=== PATIENT | female | born 1950 | race Caucasian/White ===

== ENCOUNTER 2021-09-07 15:09 | Outpatient (CLI) | payer MEDICARE ==
[2021-09-07 21:12] LABS: THYROID STIMULATING HORMONE 9.3 uIU/mL (0.34-5.60)
[2021-09-07 21:14] LABS: FREE T3 3.06 pg/mL (2.5-3.9); FREE T4 (FREE THYROXINE) 0.84 ng/dL (0.58-1.64)
== END 2021-09-07 15:10 | disposition home or self-care (01) ==
LOC: LAB.S 15:09
PROVIDERS: ATTEND Internal Medicine Endocrinology, Diabetes & Metabolism
DX: E03.9 Hypothyroidism, unspecified (principal)
CPT/HCPCS: 36415; 84439; 84443; 84481

== ENCOUNTER 2023-08-28 08:42 | Outpatient (CLI) | payer MEDICARE ==
[2023-08-28 14:39] LABS: BASOPHILS # (AUTO) 0.1 10^3/uL (0.0-0.1); BASOPHILS % (AUTO) 0.6 %; EOSINOPHILS # (AUTO) 0.1 10^3/uL (0.0-0.7); EOSINOPHILS % (AUTO) 1.4 %; HCT - HEMATOCRIT 32.8 % (37.0-47.0); HGB - HEMOGLOBIN 9.7 g/dL (12.0-16.0); LYMPHOCYTES % (AUTO) 35.3 %; MEAN CORPUSCULAR HEMOGLOBIN 23.6 pg (27.0-31.0); MEAN CORPUSCULAR HGB CONC 29.6 g/dL (32.0-36.0); MEAN CORPUSCULAR VOLUME 79.8 fL (81.0-99.0); MONOCYTES # (AUTO) 1.2 10^3/uL (0.0-1.0); MONOCYTES % (AUTO) 14.4 %; NEUTROPHILS % (AUTO) 48.1 %; PLT - PLATELET COUNT 371 10^3/uL (130-450); RED BLOOD COUNT 4.11 10^6/uL (4.20-5.40); RED CELL DISTRIBUTION WIDTH 18.1 % (12.0-15.0); WHITE BLOOD COUNT 8.4 x10^3/uL (4.8-10.8)
[2023-08-28 15:20] LABS: FERRITIN 7.5 ng/mL (11.0-306.8)
== END 2023-08-28 08:43 | disposition home or self-care (01) ==
LOC: LAB.S 08:42
PROVIDERS: ATTEND Family Medicine
DX: D64.9 Anemia, unspecified (principal)
CPT/HCPCS: 36415; 82728; 83540; 84466; 85025

== ENCOUNTER 2023-11-19 08:00 | Outpatient (CLI) | payer MEDICARE ==
[2023-11-19 20:10] LABS: FECAL OCCULT BLOOD (FIT) POSITIVE (NEGATIVE)
== END 2023-11-19 23:59 | disposition home or self-care (01) ==
LOC: LAB.S 08:00
PROVIDERS: ATTEND Family Medicine
DX: D64.9 Anemia, unspecified (principal); Z12.11 Encounter for screening for malignant neoplasm of colon
CPT/HCPCS: 82274

== ENCOUNTER 2023-12-03 11:51 | Outpatient (CLI) | payer MEDICARE ==
[2023-12-03 15:37] LABS: THYROID STIMULATING HORMONE 0.29 uIU/mL (0.34-5.60)
== END 2023-12-03 11:52 | disposition home or self-care (01) ==
LOC: LAB.S 11:51
PROVIDERS: ATTEND Family Medicine
DX: E03.9 Hypothyroidism, unspecified (principal); D64.9 Anemia, unspecified
CPT/HCPCS: 36415; 82728; 83540; 84439; 84443; 84466; 85025

== ENCOUNTER 2023-12-11 11:08 | Emergency (ER) | payer MEDICARE ==
[2023-12-11 11:29] VITALS: O2SAT 100
--- NOTE | 2023-12-11 12:07 | ED Physician Documentation ---
History of Present Illness - Stated complaint Stated Complaint: LT LEG PX, LOWER BACK PX - Chief complaint Chief Complaint: Ext Problem - Additonal information Additional information: 73-year-old female presents emergency department for lower back pain. She has recently been diagnosed with lung cancer. She says on Friday she overexerted herself was lifting to any weights and heavy boxes and started to experience some pain on Friday with worsening pain radiating down to her left leg on Friday. She says that she does have a history of sciatica. She says that she has had multiple CT scans for her lung cancer and says that she has not been told of any metastases to her spine, these images were completed about 2 to 3 weeks ago. She has had no incontinence of bowel or bladder no recent falls or trauma to the back. 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 HEENT: Detached retina repair - Present Medications Home Medications: Ambulatory Orders Medication Instructions Recorded Confirmed Cyclobenzaprine [Flexeril] 10 mg PO TID PRN 6 Days #20 tablet 12/11/23 Levothyroxine [Synthroid] 137 mcg PO QDAC 12/11/23 12/11/23 lamoTRIgine [Lamictal Xr] 200 mg PO DAILY PM 12/11/23 12/11/23 traMADol [Ultram] 50 mg PO BID 12/11/23 12/11/23 - Allergies Allergies/Adverse Reactions: Allergies Allergy/AdvReac Type Severity Reaction Status Date / Time No Known Drug Allergies Allergy Verified 12/11/23 11:18 - Social History Does the pt smoke?: No Smoking Status: Never smoker Does the pt drink ETOH?: No Does the pt have substance abuse?: No - Immunizations Immunizations are current?: Yes PD ED PE NORMAL - Vitals Vital signs reviewed: Yes - General General: Alert and oriented X 3, No acute distress, Well developed/nourished - HEENT HEENT: Atraumatic, PERRL - Abdomen Abdomen: Normal bowel sounds, Soft, Non tender, Non distended, No organomegaly - Derm Derm: Normal color, Warm and dry, No rash - Neuro Neuro: Alert and oriented X 3, 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 Curvature of the cervical, thoracic, and lumbar spine are within normal limits. Bony features of the shoulders and hips are of equal height bilaterally. Posture is upright, gait is smooth athough slow and patient is using a cane, steady, and within normal limits. No tenderness noted on palpation of the spinous processes. Spinous processes are midline. Cervical, thoracic, and lumbar paraspinal muscles are not tender and are without spasm. No discomfort is noted with flexion, extension, and [id number] rotation of the cervical spine, full range of motion is noted. Full range of motion including flexion, extension, and gqjx-[id number] rotation of the thoracic and lumbar spine are noted and without discomfort. Straight leg raise test is positive on the left side and negative on the right. Sensation to the upper and lower extremities is normal bilaterally. No clonus is noted. Shader And Toner strength is normal bilaterally. Dorsi/plantar flexion is normal bilaterally. Results - Vitals Vitals: Vital Signs - 24 hr 12/11/23 11:18 Temperature 36.5 C Heart Rate 101 H Respiratory 16 Rate Blood Pressure 133/96 H O2 Saturation 100 Oxygen O2 Source Room air PD Medical Decision Making - ED course ED course: This patient presents with back pain most consistent with lumbago w/L sided sciatica. Differential diagnoses includes lumbago versus musculoskeletal spasm / strain versus sciatica. Positive left leg raise for sciatica. No back pain red flags on history or physical. Presentation not consistent with malignancy (lack of history of malignancy, lack of B symptoms), fracture (no trauma, no bony tenderness to palpation), cauda equina (no bowel or urinary incontinence/retention, no saddle anesthesia, no distal weakness), AAA, viscus perforation, osteomyelitis or epidural abscess (no IVDU, vertebral tenderness), renal colic, pyelonephritis (afebrile, no CVAT, no urinary symptoms). Given the clinical picture, no indication for imaging at this time. Pain was significantly improved with Tylenol, Toradol, cyclobenzaprine I witnessed the patient ambulate myself and she ambulated without any difficulty was also able to get herself in and out of bed without difficulty. 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 Departure - Departure Disposition: 01 Home, Self Care Clinical Impression: Left sided sciatica, Lumbago Instructions: ED Back Care Tips, ED Spasm Back No Trauma, ED Sprain Strain Lumbar Prescriptions: Cyclobenzaprine [Flexeril] 10 mg PO TID PRN 6 Days #20 tablet PRN Reason: Spasms Comments: As we discussed it is very important that you continue to move going home and find ways to stay ambulatory to help you recover from your lower back pain laying around is going to make this back pain worse. I would follow-up with your primary care provider to see if you can get in with physical therapy to help with your recovery of sciatica. It is very important that you stay on top of pain medications [id number] with you feel if they are working or not to help with improvement of your pain. You can take 1000 mg of Tylenol every 8 hours and 500 mg of Aleve every 12 hours do not take Aleve or any other NSAID for longer than 2 weeks at a time and make sure that you eat before you take Aleve. I have also sent a prescription of cyclobenzaprine a muscle relaxer different than the one that you have at home you should take this every 8 hours, 3 times a day and stay on top of this to help with your lower back pain. You can alternate between 20 minutes of heat and 20 minutes of ice with some gentle range of motion stretching exercises to help expedite recovery. Could also consider adding on a lidocaine patch to lower back and can buy this [id number] at any pharmacy. Please come back to the emergency department if you are starting to notice any w orsening symptoms, urinary or bowel incontinence, fevers or chills or any other concerning emergent symptoms. Forms: PCP List
[2023-12-11] MEDS: CYCLOBENZAPRINE 10 MG TABLET PO STA (12:28)
[2023-12-11] MEDS: ACETAMINOPHEN 325 MG TABLET PO STA (12:28)
[2023-12-11] MEDS: KETOROLAC 30 MG/ML VIAL IM STA (12:29)
[2023-12-11] MEDS: DROPERIDOL 5 MG/2 ML VIAL IM STA (14:11)
[2023-12-11 14:29] VITALS: BP 128/85
== END 2023-12-11 14:26 | disposition home or self-care (01) ==
LOC: ED 11:08
DX: M54.42 Lumbago with sciatica, left side (principal); C34.90 Malignant neoplasm of unspecified part of unspecified bronchus or lung
CPT/HCPCS: 96372; 99283; A9270

== ENCOUNTER 2023-12-14 13:23 | Emergency (ER) | payer MEDICARE ==
[2023-12-14] MEDS: DEXAMETHASONE 10 MG/ML VIAL IM STA (15:59)
[2023-12-14] MEDS: HYDROmorphone 2 MG/ML VIAL IM STA (16:02)
[2023-12-14] MEDS: KETOROLAC 60 MG/2 ML VIAL IM STA (16:04)
--- NOTE | 2023-12-14 16:10 | ED Physician Documentation ---
History of Present Illness - Stated complaint Stated Complaint: LT LEG PX,NUMB TOES - Chief complaint Chief Complaint: Ext Problem - History obtained from History obtained from: Patient - Additonal information Additional information: The patient comes to the emergency department chief complaint of left buttock pain radiating down to her left lower leg. She states that she has a history of this but it seems to flared up worse recently. She was seen in the emergency department yesterday and given Flexeril and she also has Ultram at home, but neither of these are working. She is supposed to go down to [place] tomorrow for a lung biopsy and some other medical care for a new diagnosis of lung cancer, and she is afraid that it will be too uncomfortable for her to be able to get through the day with this sciatica going on. She states that she her outer 2 toes are numb as well. Patient denies any difficulty controlling bowels or bladder. She denies any fevers or chills. No acute injury. She states it hurts to sit. 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 HEENT: Detached retina repair - Present Medications Home Medications: Ambulatory Orders Medication Instructions Recorded Confirmed Cyclobenzaprine [Flexeril] 10 mg PO TID PRN 6 Days #20 tablet 12/11/23 Levothyroxine [Synthroid] 137 mcg PO QDAC 12/11/23 12/11/23 lamoTRIgine [Lamictal Xr] 200 mg PO DAILY PM 12/11/23 12/11/23 traMADol [Ultram] 50 mg PO BID 12/11/23 12/11/23 Alprazolam [Xanax] 0.25 mg PO Q6H PRN #12 tablet 12/14/23 HYDROcod/ACETAM 5/325 [[place] 5/325] 1 - 2 tablet PO Q4HR PRN #14 tablet 12/14/23 predniSONE [Deltasone] 10 mg PO [id number] #42 tab 12/14/23 - Allergies Allergies/Adverse Reactions: Allergies Allergy/AdvReac Type Severity Reaction Status Date / Time No Known Drug Allergies Allergy Verified 12/14/23 13:31 - Social History Does the pt smoke?: No Smoking Status: Never smoker Does the pt drink ETOH?: No Does the pt have substance abuse?: No - Immunizations Immunizations are current?: Yes PD ED PE NORMAL - Vitals Vital signs reviewed: Yes - General General: Alert and oriented X 3, No acute distress, Well developed/nourished, Other - HEENT HEENT: Atraumatic, EOMI, Moist mucous membranes - Neck Neck: Supple, no meningeal sign - Cardiac Cardiac: RRR, No murmur, Strong equal pulses - Respiratory Respiratory: No respiratory distress, Clear bilaterally - Abdomen Abdomen: Soft, Non tender, Non distended - Derm Derm: Normal color, Warm and dry, No rash - Extremities Extremities: No deformity, No edema, No calf tenderness / cord - Neuro Neuro: No motor deficit, No sensory deficit, Other (Grossly intact) - Psych Psych: Normal mood (No anxiety clinically), Normal affect Results - Vitals Vitals: Oxygen O2 Source Room air PD Medical Decision Making - ED course Complexity details: considered differential, d/w patient, d/w family ED course: The patient was treated symptomatically with IM Dilaudid, Toradol, and Decadron. Her sister, who is present, asked repeatedly about the patient getting Xanax and I have explained to her that I will prescribe a small prescription for this though this will ultimately be up to her primary and cancer care team to prescribe on a longer-term basis that they feel appropriate. I am also not going to give a dose here because I have given the patient the sizable dose of Dilaudid and would prefer to focus on pain control since that is why the patient is here and she is not clinically anxious. After symptomatic treatment, the pt's sister did walk out and report to staff that pt was feeling better, and wondered what was taking so long for her to get discharged. I was with another pt at that time, but discharged the pt thereafter. I have prescribed the Xanax requested, as well as prednisone and a narcotic pain medication. The pt is advised to follow up with her outpatient team for long-term symptomatic management. Departure - Departure Disposition: 01 Home, Self Care Clinical Impression: Left sided sciatica Condition: Stable Instructions: ED Sciatica Prescriptions: HYDROcod/ACETAM 5/325 [[place] 5/325] 1 - 2 tablet PO Q4HR PRN #14 tablet PRN Reason: Pain predniSONE [Deltasone] 10 mg PO [id number] #42 tab Alprazolam [Xanax] 0.25 mg PO Q6H PRN #12 tablet PRN Reason: Anxiety Comments: You have been treated for your pain here in the emergency department today. Prescriptions for medication for you have been electronically transmitted to the [facility] in [place]. Please pick them up and take as needed. Please follow-up with your cancer doctors as you are scheduled to do. Forms: PCP List Discharge Date/Time: 12/14/23 17:24
[2023-12-14 17:29] VITALS: BP 124/75; O2SAT 95
== END 2023-12-14 17:24 | disposition home or self-care (01) ==
LOC: ED 13:23
DX: M54.32 Sciatica, left side (principal); C34.90 Malignant neoplasm of unspecified part of unspecified bronchus or lung
CPT/HCPCS: 96372; 99283; 99284; J1170

== ENCOUNTER 2024-03-08 09:54 | Outpatient (CLI) | payer MEDICARE | END 2024-03-08 23:59 | disposition left against medical advice (07) | LOC: EMS 09:54 | DX: M25.511 Pain in right shoulder (principal); M25.552 Pain in left hip; W01.0XXA Fall on same level from slipping, tripping and stumbling without subsequent striking against object, initial encounter; Y92.008 Other place in unspecified non-institutional (private) residence as the place of occurrence of the external cause ==